=== PATIENT | female | born 1975 | race Caucasian/White ===

== ENCOUNTER 2020-05-29 17:01 | Emergency (ER) | payer MEDICAID ==
[~2020-05-29] VITALS: Ht 165.1 cm; Wt 81.0 kg
[2020-05-29] MEDS ORDERED: ACETAMINOPHEN 325MG TABLET PO STA (17:53)
[2020-05-29] MEDS ORDERED: SODIUM CHLORIDE 0.9% 1,000 ML IV ONE (18:00)
[2020-05-29 18:36] LABS: HEMATOCRIT. 36.3 % (36.0-48.0); HEMOGLOBIN. 12.2 g/dL (12.0-16.0); MEAN CORPUSCULAR HEMOGLOBIN 27.3 pg (28.0-32.0); MEAN PLATELET VOLUME 8.5 fl (7.4-10.4); PLATELET 259 x1000/uL (130-400); RED BLOOD CELL COUNT 4.48 mill/uL (4.2-5.4); RED CELL DISTRIBUTION WIDTH 14.6 % (11.6-14.6)
[2020-05-29 18:38] LABS: CHLORIDE 103 mEq/L (98-107)
[2020-05-29 18:45] LABS: HCG SCREEN NEGATIVE
[2020-05-29] MEDS ORDERED: POTASSIUM CHLORIDE 20MEQ TABLET SR PO SCH (19:15)
[2020-05-29 19:26] LABS: PLATELET ESTIMATE NORMAL
[2020-05-29] MEDS ORDERED: CEFTRIAXONE 1 G PREMIX 50 ML IV ONE (19:45)
[2020-05-29 20:37] LABS: CLARITY URINE CLOUDY (CLEAR); COLOR URINE YELLOW (YELLOW); KETONES URINE NEGATIVE (NEGATIVE); LEUKOCYTE ESTERASE URINE NEGATIVE (NEGATIVE); NITRITE URINE NEGATIVE (NEGATIVE); OCCULT BLOOD URINE NEGATIVE (NEGATIVE); PH URINE 6.5 (4.5-8.0); PROTEIN URINE NEGATIVE (NEGATIVE); UROBILINOGEN URINE 0.2 E.U./dL (0.2-1.0)
[2020-05-29 21:03] VITALS: BP 113/72
== END 2020-05-29 21:29 | disposition home or self-care (01) ==
LOC: ER 17:01
DX: U07.1 COVID-19 (principal); J18.9 Pneumonia, unspecified organism
CPT/HCPCS: 36415; 71045; 80053; 81003; 83605; 84484; 84703; 85025; 87086; 96361; 96365; 99284; J0696; J7030